=== PATIENT | male | born 1980 | race Caucasian/White ===

== ENCOUNTER 2016-12-05 14:35 | Emergency (ER) | payer BC ==
[2016-12-05 15:00] VITALS: BP 135/70
[2016-12-05 16:01] LABS: CHLORIDE,CL 103 mmol/L (98-107); SODIUM,NA 142 mmol/L (136-145)
--- NOTE | 2016-12-08 08:47 | ER ---
Date of Service: 12/05/2016 REASON FOR VISIT: Chest pain. HISTORY: A 36-year-old, white male, brought in ambulatory accompanied by his spouse. He has been having some left costal margin and left upper quadrant abdominal pain that has been fairly constant, but intermittent over the past several years. It initially started about 7 years ago, he took a course of Prilosec at that time. His symptoms resolved. He was felt well for about a year and started having problems again. He went in about 5 years ago, had some evaluation done. Based on the blood tests, he was found to have H. pylori and treated. There is no EGD or breath test done to confirm active infection. He occasionally has heartburn in the retrosternal area and sometimes up into his throat. He does take occasional Tums. In the last 2 days, he has had pain in his epigastric area associated with left costal margin and left upper quadrant pain and that was a new sensation for him, mainly about the zyphoid started yesterday, it waxed and wane. It felt like a fullness more than anything. There is also like a pulled muscle feeling in the same area. He has some occasional shortness of breath. No nausea or vomiting. He has had night sweats, he has had for 2 years. He had a cold about 2 weeks ago. He has gained some weight over the past 8 years. No change in bowel habits. No melena. He does note occasional trace of blood in the stools. Urine seems darker than normal, but he drinks constantly throughout the day. No other urinary symptoms. MEDICATIONS: None. ALLERGIES: None known. PAST MEDICAL HISTORY: Includes an appendectomy. HABITS: Tobacco use is positive. Alcohol use is positive. PHYSICAL EXAMINATION: General: He is alert. He is afebrile. Vital signs: Pulse is 77 and regular, blood pressure is 135/70, respirations are 20, and O2 sats 97% on room air. HEENT: TMs negative. Throat clear. Neck: Supple. No adenopathy. Heart: Regular rate and rhythm. No murmur heard. Lungs: Clear to auscultation. Back: Nontender. Abdomen: Soft. There is some minimal left upper quadrant tenderness. No masses palpable. Some tenderness with palpating to his chest wall. It does not reproduce his symptoms however. Extremities: Warm and dry. No edema. LABORATORY DATA: White count is 8.3, hemoglobin 14.3. Electrolytes are normal. Creatinine is 1.0. Bilirubin mildly elevated at 1.2. The rest of the LFTs are normal. Troponin was negative. C-reactive protein was negative. Urinalysis is unremarkable. EKG shows a normal sinus rhythm, rate of 72, no acute changes. Chest x-ray, PA and lateral is unremarkable. ASSESSMENT: Left upper quadrant pain, undetermined etiology. PLAN: 1. I have recommended Prilosec OTC for two weeks. 2. Follow up with primary provider, recommend EGD and CT scan of the abdomen and pelvis. Call or return if problems or concerns. FM: 12/05/2016 17:20:53 MODL: 12/06/2016 00:06:29 /[id number]
== END 2016-12-05 16:41 | disposition home or self-care (01) ==
LOC: VM.ED 14:35
DX: R10.12 Left upper quadrant pain (principal); Z90.49 Acquired absence of other specified parts of digestive tract
CPT/HCPCS: 36415; 71020; 80053; 81001; 84484; 85025; 86140; 93005; 99284

== ENCOUNTER 2016-12-25 06:27 | Day surgery (SDC) | payer BC ==
[~2016-12-25 06:27] MED LIST: Lactated Ringers 1,000 ML IV SCH
[2016-12-25] MEDS ORDERED: Propofol 200 MG/20 ML SDV ONE ×2 (07:55→09:48)
[2016-12-25] MEDS ORDERED: fentaNYL 100 MCG/2 ML SDV ONE (07:56)
[2016-12-25 11:37] VITALS: BP 148/69
--- NOTE | 2016-12-25 16:08 | OR ---
DATE OF SURGERY: 12/25/2016. REFERRING PROVIDER: RAÚL Frank. PREOPERATIVE DIAGNOSES: 1. Hematochezia with last episode being a week ago. 2. History of gastritis. 3. No family history of inflammatory bowel disease or family history of colon cancer. POSTOPERATIVE DIAGNOSES: 1. Normal-appearing distal ilium and colon. Random biopsies were taken from each area. 2. Possibly some minimal internal hemorrhoids, not acutely inflamed. PROCEDURE: Colonoscopy with random biopsies from distal ileum as well as colon. SURGEON: Avery Zelaya M.D. ANESTHESIA: Monitored anesthesia care. BOWEL PREP: Good. Avinash is a 36-year-old male who was brought to the endoscopy suite after discussing risks and benefits of the procedure. Informed consent was obtained for conscious sedation and colonoscopy with or without biopsy and/or polypectomy. We also discussed possibility of missed lesions. Pre-procedure exam was unremarkable. IV, oxygen, and monitors were placed. The patient was placed in the left lateral decubitus position. Sedation was administered and a digital rectal exam was performed which was unremarkable. Colonoscope was passed into the rectum and slowly advanced all the way to the cecum. Cecum was viewed and photographed. The distal ileum was intubated. Random biopsy x2 bites were taken. Distal ileum did appear normal. The colonoscope was slowly withdrawn and the mucosa was closed observed in a direct circumferential manner. The ascending colon was unremarkable. The transverse colon was unremarkable. The descending colon was unremarkable. The sigmoid colon was unremarkable. Random biopsies were obtained throughout the colon, including right, transverse, and left colon as well as rectal mucosa. Retroflexion was performed and rectal mucosa was otherwise unremarkable, except for maybe some minimal internal hemorrhoids, which were not acutely inflamed. Scope was removed. The patient tolerated the procedure well. The patient was monitored until that baseline status. Discharge instructions were reviewed and the patient was discharged in good condition. COMPLICATIONS: None. TOTAL TIME: 15 minutes. ESTIMATED BLOOD LOSS: About 1 mL. RECOMMENDATIONS/FOLLOW-UP: We will await results of path report to determine ideal followup interval. I would like to kindly thank Kishore Patton for this referral. DMB: 12/25/2016 10:26:55 MODL: 12/25/2016 15:56:12 /[id number]
== END 2016-12-25 10:30 | disposition home or self-care (01) ==
LOC: VM.SDS 06:27
PROVIDERS: ATTEND Family Medicine
DX: K92.1 Melena (principal); K29.70 Gastritis, unspecified, without bleeding; Z79.899 Other long term (current) drug therapy
CPT/HCPCS: 45380; J2704; J3010; J7120

== ENCOUNTER 2017-04-22 09:13 | Day surgery (SDC) | payer BC ==
[2017-04-22] MEDS ORDERED: Propofol 200 MG/20 ML SDV ONE (10:37)
[2017-04-22] MEDS ORDERED: fentaNYL 100 MCG/2 ML SDV ONE (10:38)
[2017-04-22 12:37] VITALS: BP 114/63
--- NOTE | 2017-04-22 19:09 | OR ---
PREOPERATIVE DIAGNOSIS: Persistent dyspepsia. POSTOPERATIVE DIAGNOSIS: Essentially normal exam esophagus, stomach, and duodenum. Antral biopsies pending. PROCEDURE PROPOSED: Upper gastrointestinal panendoscopy with antral biopsies to rule out Helicobacter pylori. PROCEDURE DONE: Upper gastrointestinal panendoscopy with antral biopsies to rule out Helicobacter pylori. INDICATION: This is a 36-year-old gentleman bothered for the past number of years with dyspepsia-type symptoms. He originally, about 7 years ago, treated himself with some Prilosec and that helped his symptoms. Most recently, now he has been taking Tums and just got started on some Zantac 150 mg twice a day with some relief of symptoms, but he still has some underlying burning, discomfort in the left upper quadrant. He does have a family history of gallbladder disease, but not ulcer disease. TECHNIQUE: The patient was brought to the endoscopy suite, placed in left lateral decubitus position. He was sedated with propofol per STEREOTYPER. The flexible video gastroscope was then passed transorally and under visualization advanced well into the duodenum. The patient really had a normal-looking duodenum. The ampulla was visualized. The pylorus and antral regions appeared unremarkable. Some biopsies were taken from the antrum to rule out H. pylori. The body of the stomach also looked quite normal and healthy without inflammation or ulceration. The GE junction did not reveal any hiatal hernia or active GERD. The GE junction was well demarcated without any stenosis or Schatzki ring and the remainder of esophagus was normal. As the scope was then withdrawn, he tolerated procedure well. FINAL IMPRESSION: Essentially normal exam of esophagus, stomach, and duodenum. PLAN: I am going to treat him for 1 month with Prilosec to see if it would not totally relieve his symptoms. I prescribed 20 mg b.i.d. for 2 weeks then once a day for another 2 weeks and then he can go back on his Zantac. He needs to avoid caffeine, which he does consume a fair amount. He also needs to avoid nicotine, alcohol, ibuprofen, and if his symptoms persist, I do feel he should have his gallbladder evaluated, especially with the family history being positive for that. SCM: 04/22/2017 11:48:10 MODL: 04/22/2017 12:40:13 /[id number]
--- NOTE | 2017-05-05 11:51 | LETTER ---
05/04/2017 Annelise Mcfarland RE: ANNELISE MCFARLAND : 1980 Dear Annelise, The biopsy taken from your stomach revealed no abnormalities and it was also negative for H. pylori, which is the bacteria that can cause stomach problems. At this point, I do not feel your stomach is causing your abdominal pain. If you are continuing to have issues, I would recommend that you follow up with your family physician. Respectfully,
== END 2017-04-22 12:39 | disposition home or self-care (01) ==
LOC: VM.SDS 09:13
PROVIDERS: ATTEND Surgery
DX: R10.13 Epigastric pain (principal); R76.0 Raised antibody titer
CPT/HCPCS: 43239; J2704; J3010; J7120